=== PATIENT | female | born 1940 | race African-American/Black ===

== ENCOUNTER → 2017-06-19 | Outpatient (CLI) | payer OTHER, MEDICAID ==
[~2017-06-19] MED LIST: ACTOS 30 MG TAB30 MG PO; ASPIRIN325 PO; BUSPAR PO; BUSPIRONE HCL10 MG PO; CLONIDINE HCL0.2 M2 PO; CLONIDINE HCL0.3 M3 PO; COREG6.25 MG PO; CRESTOR20 MG PO; DETROL LA4 MG PO; FAMOTIDINE40 MG PO; GLUCOPHAGE1000 MG PO; HYDRALAZINE HC100 MG PO; IRON325 PO; KLOR-CON 1010 MEQ PO; LASIX 20 MG TAB20 MG PO; LEVOTHROID25 MCG PO; LEVOTHYROXIN0.025 MG PO; LIPITOR40 MG PO; MAGOX 400400 MG PO; NIFEDICAL XL60 MG PO; NORVASC10 MG PO; PAXIL30 MG PO; PLAVIX 75 MG TA75 M1 PO; RANEXA500 MG PO; SINGULAIR 10 MG10 M1 PO; TOPROL XL100 MG PO; TORSEMIDE20 MG PO; VASOTEC20 MG PO
== END ==
LOC: M.ULTRA 11:00
DX: E04.2 Nontoxic multinodular goiter (principal); R94.6 Abnormal results of thyroid function studies

== ENCOUNTER → 2018-04-04 | Outpatient (CLI) | payer OTHER, MEDICAID | LOC: M.RAD 09:43 | DX: R92.8 Other abnormal and inconclusive findings on diagnostic imaging of breast (principal); N64.4 Mastodynia ==

== ENCOUNTER → 2018-05-22 | Outpatient (CLI) | payer OTHER, MEDICAID | LOC: M.CT 12:59 | DX: K57.30 Diverticulosis of large intestine without perforation or abscess without bleeding (principal); M51.36 Other intervertebral disc degeneration, lumbar region; K21.9 Gastro-esophageal reflux disease without esophagitis; R11.0 Nausea; R63.4 Abnormal weight loss ==

== ENCOUNTER → 2018-09-17 | Outpatient (CLI) | payer OTHER, MEDICAID | LOC: M.ULTRA 09-12 16:00 | DX: S59.902A Unspecified injury of left elbow, initial encounter (principal); Z88.8 Allergy status to other drugs, medicaments and biological substances; X58.XXXA Exposure to other specified factors, initial encounter; Y93.89 Activity, other specified; Y92.89 Other specified places as the place of occurrence of the external cause; Y99.8 Other external cause status ==